=== PATIENT | female | born 1935 ===

== ENCOUNTER 2021-07-01 19:24 | Emergency (ER) | payer OTHER ==
[~2021-07-01] VITALS: Ht 172.7 cm; Wt 81.6 kg
[2021-07-01] MEDS ORDERED: SODIUM BICARBONATE 8.4% INJ 50ML SYRINGE IV ONE (19:25)
[2021-07-01] MEDS ORDERED: MAGNESIUM SULF 50% 40 MEQ/10 ML VL IV ONE (19:25)
[2021-07-01] MEDS ORDERED: CALCIUM CHLOR(10%) 100MG/ML 10ML SYRINGE IV ONE (19:25)
[2021-07-01] MEDS ORDERED: EPINEPHrine HCL 1 MG/10 ML SYRG IV ONE (19:25)
[2021-07-01] MEDS ORDERED: HEPARIN DRIP/D5W 100UNITS/ML 250 ML IV SCH (19:45)
[2021-07-01] MEDS ORDERED: CLOPIDOGREL 300 MG TAB PO ONE (19:45)
[2021-07-01] MEDS ORDERED: HEPARIN SODIUM (PORCINE) 5000 UNITS/ML 1ML VIAL IV ONE (19:45)
[2021-07-01 20:21] LABS: Basophils # (auto) 0.1 10 ^3/uL (0-0.2); Hematocrit 34.9 % (36.0-46.0); Lymphocytes # (auto) 1.6 10 ^3/uL (0.4-5.4); Monocytes # (auto) 1.1 10 ^3/uL (0-1.3); Neutrophils # (auto) 9.1 10 ^3/uL (1.6-8.6)
[2021-07-01 20:23] LABS: Basophils % (auto) 0.6 % (0.0-2.0); Eosinophils # (auto) 0.5 10 ^3/uL (0-0.8); Eosinophils % (auto) 3.7 % (0.0-7.0); Hemoglobin 11.5 g/dL (12.2-16.2); Lymphocytes % (auto) 12.7 % (10.0-50.0); Mean Corpuscular Hemoglobin 28.6 pg (28.0-32.0); Mean Corpuscular Hgb Conc. 33.1 g/dL (32.0-36.0); Mean Corpuscular Volume 86.6 fL (80.0-100.0); Red Blood Cells 4.03 10^6/uL (4.0-5.20); Red Cell Distribution Width 13.4 % (11.8-14.3); White Blood Cell 12.3 10^3/uL (4.4-10.8)
[2021-07-01 20:44] LABS: Albumin 2.5 g/dL (3.4-5.0); Calcium 8.3 mg/dL (8.5-10.1); Potassium 3.7 mmol/L (3.5-5.1)
[2021-07-01] MEDS ORDERED: MORPHINE SULF INJ 2 MG/ML SYRINGE 1ML IV ONE (20:45)
[2021-07-01 20:52] LABS: BUN/Creatinine Ratio 18.3; Bilirubin, Total 0.2 mg/dL (0.2-1.0); Total Protein 7.5 g/dL (6.4-8.2)
[2021-07-01 22:30] VITALS: BP 138/82
[2021-07-01 23:25] LABS: INR 1.05 (0.9-1.15); Partial Thromboplastin Time 24.7 sec (23.6-33.0)
[2021-07-01] MEDS ORDERED: ATROPINE SULF 1 MG/10ml SYR ONE (23:51)
[2021-07-01] MEDS ORDERED: ANGIOMAX 250 MG VIAL IV ONE (23:52)
[2021-07-01] MEDS ORDERED: IODIXANOL 320MG/ML 100ML BTL IV ONE (23:52)
[2021-07-01] MEDS ORDERED: MIDAZOLAM HCL 2MG/2ML 2ml VIAL (1mg/ml) ONE (23:52)
[2021-07-01] MEDS ORDERED: SODIUM CHL 0.9% 0 ML ONE (23:52)
[2021-07-01] MEDS ORDERED: fentaNYL CITRATE 100 MCG/2 ML VL ONE (23:52)
[2021-07-01] MEDS ORDERED: EPINEPHrine HCL 1 MG/10 ML SYRG ONE (23:52)
[2021-07-01] MEDS ORDERED: HEPARIN IN NS 1000Units/500mL 0 ML ONE (23:53)
== END 2021-07-01 23:53 ==
LOC: EDBD 19:24 → ER 19:24
DX: I46.9 Cardiac arrest, cause unspecified (principal); I21.4 Non-ST elevation (NSTEMI) myocardial infarction; R41.82 Altered mental status, unspecified
CPT/HCPCS: 31500; 36415; 71045; 80053; 82962; 83880; 84484; 85025; 85610; 85730; 92950; 93005; 96374; 96375; 99291; J0171; J1644; J2270; J3475; J2250; Q9967